=== PATIENT | female | born 2000 | race African-American/Black ===

== ENCOUNTER 2022-04-03 05:21 | Emergency (ER) | payer OTHER ==
[~2022-04-03] VITALS: Ht 154.9 cm; Wt 54.4 kg
--- NOTE | 2022-04-03 05:21 | NUR ---
Patient BIB [facility] from home for c/o abdominal cramping and vaginal bleeding since yesterday. Patient stated that she is 6-7 days . Patient is a/ox3, not in distress.
[2022-04-03 06:02] LABS: MEAN CORPUSCULAR HEMOGLOBIN 29.6 uug (24.7-32.8); MEAN CORPUSCULAR VOLUME 87.9 fL (75.5-95.3); PLATELET COUNT (AUTO) 210 K/uL (179-408)
[2022-04-03] MEDS ORDERED: ACETAMINOPHEN ES 500 MG TABLET ONE (06:26)
[2022-04-03] MEDS ORDERED: ACETAMINOPHEN ES 500 MG TABLET PO ONE (06:30)
[2022-04-03 07:21] LABS: CREATININE 0.9 mg/dL (0.6-1.3); POTASSIUM 3.3 mmol/L (3.5-5.1)
[2022-04-03 07:26] LABS: BILIRUBIN,DIRECT 0.1 mg/dL (0.0-0.2); BILIRUBIN,TOTAL 0.4 mg/dL (0.2-1.0); TOTAL PROTEIN, SERUM 7.1 g/dL (6.4-8.2)
--- NOTE | 2022-04-03 07:39 | NUR ---
Patient discharged to home in stable condition. Written and verbal after care instructions given. Patient verbalizes understanding of instructions. Stressed follow up or return to ER for worsening s/s. Vitals as follows; 115/80 WI-80 RR-20 T-97.1 SPO2-98% RA.
[2022-04-03 07:40] VITALS: BP 115/80
== END 2022-04-03 07:41 | disposition home or self-care (01) ==
LOC: ER 05:25
DX: O20.8 Other hemorrhage in early pregnancy (principal); Z3A.01 Less than 8 weeks gestation of pregnancy
CPT/HCPCS: 36415; 76856; 85025; 86850; 86900; 86901; A4663; A9150